=== PATIENT | male | born 1985 | race Caucasian/White ===

== ENCOUNTER 2016-08-24 12:33 | Emergency (ER) | payer SELFPAY ==
[~2016-08-24] VITALS: Ht 182.9 cm; Wt 76.0 kg
[2016-08-24 12:36] VITALS: BP 130/73
[2016-08-24] MEDS ORDERED: TETANUS, DIPHTHERIA, PERTUSSIS VAC/PF 0.5ML (>7YR OLD) IM ONE (14:15)
== END 2016-08-24 15:37 | disposition home or self-care (01) ==
LOC: ER 13:26
DX: L03.113 Cellulitis of right upper limb (principal); L40.9 Psoriasis, unspecified
CPT/HCPCS: 73070; 90471; 90715; 99284